=== PATIENT | female | born 1935 | race Caucasian/White ===

== ENCOUNTER 2018-09-04 10:52 | Emergency (ER) | payer MEDICARE, OTHER ==
[2018-09-04 11:09] VITALS: BP 155/100
--- NOTE | 2018-09-04 11:15 | EDM.PDOC ---
ED HPI GENERAL MEDICAL PROBLEM - General Chief Complaint: Syncope Stated Complaint: PASSING OUT,MORE THAN ONCE Time Seen by Provider: 09/04/18 11:15 Source of Information: Reports: Patient, Family History Limitations: Reports: No Limitations - History of Present Illness INITIAL COMMENTS - FREE TEXT/NARRATIVE: 83-year-old female presents to the ED feeling very offkilter trying to walk this morning. He was up at 3:00 this morning and couldn't walk normally without feeling off balance. However since getting up around 0700 hrs. she cannot walk alone. She required 2 person assist to coming to the ED she's had vertigo in the past associated with ear infections. Of note she had a tympanostomy tube placed in her left ear within the last 10 days due to chronic serous otitis media. At present she is getting a lot of postnasal drip and discharge which is foul tasting and causing her to cough . She is better she is sitting up and hold still. Denies any headache. She did not take her medicines this morning because her stomach was upset. Denies any fever or chills. Patient has chronic atrial fibrillation and rate appears to be controlled between 75 and 100/m on ECG. She denies any chest pain. Not aware of any palpitations this morning. Onset: Today, Sudden Onset Date: 09/04/18 Onset Time: 07:00 Duration: Hour(s): Location: Reports: Generalized (Generalized sense of being off balance. Difficulty walking due to ataxia. States she was walking like a drunk.) Quality: Reports: Other Severity: Moderate (Ataxic gait with vertigo symptoms.) Improves with: Reports: Rest (Sitting up and holding still makes symptoms better.) Worsens with: Reports: Movement Context: Denies: Activity (Particularly lying down or trying to walk.), Exercise , Lifting, Sick Contact, Trauma, Other Associated Symptoms: Reports: Cough, Loss of Appetite, Malaise, Nausea/Vomiting , Other (Nausea without vomiting. Ataxic gait. She cannot walk alone.). Denies : No Other Symptoms, Confusion, Chest Pain (Very productive sounding cough. She blames postnasal drip since having the tympanostomy tube placed as a cause of this. Feels like her sinuses are draining.), cough w sputum, Diaphoresis, Fever/ Chills, Headaches, Rash, Seizure, Shortness of Breath, Syncope Treatments [employer]: Reports: Other (see below) (None.) - Related Data Allergies Allergy/AdvReac Type Severity Reaction Status Date / Time No Known Allergies Allergy Verified 09/04/18 11:16 Home Meds: Home Meds Digoxin 125 mcg PO ASDIRECTED 02/05/14 [History] Diltiazem HCl [Diltiazem ER] 240 mg PO DAILY 02/05/14 [History] Multivit-Min/FA/Lutein/Zeaxant [Macular Vitamin Tablet] 1 tab PO DAILY 02/05/14 [History] Warfarin [Coumadin] 5 mg PO ASDIRECTED 02/05/14 [History] Warfarin [Coumadin] 7.5 mg PO ASDIRECTED 02/05/14 [History] Omeprazole [Prilosec] 40 mg PO DAILY 05/13/14 [History] B2/Vit A,C & E/Lut/Zeaxanth/Mn [Icaps] 1 tab PO DAILY 09/04/18 [History] Doxycycline [Vibramycin] 100 mg PO BID #20 cap 09/04/18 [Rx] Furosemide [Lasix] 40 mg PO DAILY #30 tablet 09/04/18 [Rx] Losartan [Cozaar] 100 mg PO DAILY 09/04/18 [History] Magnesium Chloride [Slow-Mag] 71.5 mg PO BID #60 tablet. 09/04/18 [Rx] Meclizine [Antivert] 12.5 mg PO Q8H #15 tab 09/04/18 [Rx] Nitroglycerin 0.4 mg SL ASDIRECTED PRN 09/04/18 [History] Spironolactone [Aldactone] 25 mg PO DAILY #30 tablet 09/04/18 [Rx] Past Medical History HEENT History: Reports: Hard of Hearing (Wears a hearing aid in both ears.), Macular Degeneration (Right eye.), Otitis Media, Sinusitis (Chronic sinusitis. Chronic problems with serous otitis media. She's had to place in her left ear twice with a recent one done within the last 10 days.) Cardiovascular History: Reports: Afib (Chronic atrial fibrillation and is on digoxin for rate control and Coumadin.) Respiratory History: Reports: Bronchitis, Recurrent, COPD Genitourinary History: Reports: Urinary Incontinence (Urinary frequency. Mostly urge incontinence.), Other (See Below) Musculoskeletal History: Reports: Osteoarthritis (Dictating knees hands particularly left thumb at this time. So in her hips as well.) Social & Family History - Living Situation & Occupation Living situation: Reports: , Alone Occupation: Retired ED ROS GENERAL - Review of Systems Review Of Systems: See Below Constitutional: Reports: Malaise, Fatigue, Decreased Appetite (Hasn't felt like eating 2 days.). Denies: Fever, Chills, Weight Loss HEENT: Reports: Glasses, Other (Hearing aids in both ears. Recent tympanostomy tube placed left ear.) Respiratory: Denies: Shortness of Breath, Wheezing, Pleuritic Chest Pain Cardiovascular: Reports: Blood Pressure Problem, Dyspnea on Exertion, Other ( Vertigo today.). Denies: Chest Pain, Claudication, Orthopnea (Chronic hypertension) Endocrine: Reports: Fatigue GI/Abdominal: Reports: Decreased Appetite (Last couple of days. She blames postnasal drip with all tasting discharge as part of the issue.), Nausea (Nausea /with the vertigo without vomiting today.) : Reports: Frequency, Incontinence Musculoskeletal: Reports: Joint Pain (Mostly urge but also a component of stress incontinence. Her left thumb at this time at the first MCP joint. Has arthritis in her hands low back knees and hips.) Skin: Reports: Bruising (Bruises easily as she is on Coumadin.) Neurological: Reports: No Symptoms, Difficulty Walking (Ataxic gait today.). Denies: Confusion Psychiatric: Reports: No Symptoms Hematologic/Lymphatic: Reports: No Symptoms Immunologic: Reports: No Symptoms - Physical Exam Exam: See Below Exam Limited By: No Limitations General Appearance: Alert, WD/WN, No Apparent Distress Eye Exam: Right Eye: Nystagmus (Sustained lateral nystagmus to the right. Unsustained on the left.), Bilateral Eye: Normal Inspection Ears: Other (Right tympanic membrane is normal. Left has a recently placed tympanostomy tube which is green in color. There is surrounding hemorrhage at the site of insertion in the eardrum. No drainage or occlusion of the TM is appreciated.) Throat/Mouth: Other Head Exam: Atraumatic (Orthotics is mildly inflamed from coughing.), Normocephalic Neck: Limited Range of Motion. No: Carotid Bruit, Lymphadenopathy (L), Lymphadenopathy (R) Respiratory/Chest: No Respiratory Distress, Lungs Clear, Normal Breath Sounds ( Breasts sounds are decreased in the lower 20% of lung russell. No adventitial sounds noted.), Decreased Breath Sounds. No: Rales, Rhonchi, Wheezing Cardiovascular: No Edema, No Gallop, No JVD, No Murmur, No Rub, Irregularly Irregular (Patient is in atrial fibrillation chronically. Occasional PVCs.). No : Normal Peripheral Pulses GI/Abdominal: Normal Bowel Sounds, Soft, Non-Tender, No Organomegaly, No Abnormal Bruit, No Mass, Pelvis Stable, Other (Patient is a previous cholecystectomy appendectomy total bili hysterectomy and BSO.) Neuro Exam (Abbreviated): Alert, Oriented, CN II-XII Intact, Normal Cognition, Other (Ataxic gait. Normal jcsy-we-kcsd assessment normal finger to nose assessment. No focal neurological deficit appreciated on exam.). No: Normal Gait DTR: 0: Achilles (R), Achilles (L), 1+: Bicep (R), Bicep (L), Patella (R), Patella (L) Back Exam: Other (Mild kyphosis thoracic spine.) Extremities: Normal Inspection, Normal Range of Motion, Non-Tender, No Pedal Edema Psychiatric: Normal Affect, Normal Mood Skin Exam: Warm, Dry, Intact, Normal Color, No Rash EKG INTERPRETATION EKG Date: 09/04/18 Time: 10:57 Rhythm: Other (Occasional PVCs.) Rate (Beats/Min): 87 [place]: Normal P-Wave: Absent QRS: Other (Q waves V1 and near Q waves V2.) ST-T: Depressed (Consider old anteroseptal myocardial infarction. ST segment depression scooping a repo repolarization abnormality be 3 to V6 also in lead 1. T wave flattening in aVL. There is repolarization abnormality appreciated in leads II, III, and F aVF as well. Cannot rule out global ischemia.) QT: Normal EKG Interpretation Comments: Abnormal ECG Course - Vital Signs Last Recorded V/S: Last Vital Signs Temp 36.5 C 09/04/18 11:02 Pulse 86 09/04/18 11:02 Resp 13 09/04/18 11:02 BP 155/100 H 09/04/18 11:02 Pulse Ox 98 09/04/18 11:02 - Orders/Labs/Meds Orders: Active Orders 24 hr Category Date Time Status EKG Documentation Completion [RC] STAT Care 09/04/18 11:36 Active Chest 1V Frontal [CR] Stat Exams 09/04/18 11:36 Taken Dextrose 5%-0.9% NaCl [Dextrose 5%-Normal Saline] 1,000 Med 09/04/18 11:45 Active ml IV ASDIRECTED Medication Orders Dextrose/Sodium Chloride (Dextrose 5%-Normal Saline) 1,000 mls @ 150 mls/hr IV ASDIRECTED JERICHO Last Admin: 09/04/18 11:52 Dose: 150 mls/hr Labs: Laboratory Tests 09/04/18 09/04/18 09/04/18 Range/Units 11:05 11:05 11:05 WBC 11.45 H (3.98-10.04) K/mm3 RBC 5.02 (3.98-5.22) M/mm3 Hgb 16.6 H (11.2-15.7) gm/L Hct 50.1 H (34.1-44.9) % MCV 99.8 H (79.4-94.8) fl MCH 33.1 H (25.6-32.2) pg MCHC 33.1 (32.2-35.5) g/dl RDW Std Deviation 47.9 H (36.4-46.3) fL Plt Count 221 (182-369) K/mm3 MPV 10.6 (9.4-12.3) fl Neutrophils % (Manual) 58 (40-60) % Band Neutrophils % 0 (0-10) % Lymphocytes % (Manual) 27 (20-40) % Atypical Lymphs % 0 % Monocytes % (Manual) 13 H (2-10) % Eosinophils % (Manual) 2 (0.7-5.8) % Basophils % (Manual) 0 L (0.1-1.2) Platelet Estimate Adequate RBC Morph Comment Normal PT 14.1 H (9.5-12.1) SECONDS INR 1.30 Sodium 140 (136-145) mEq/L Potassium 3.4 L (3.5-5.1) mEq/L Chloride 101 (98-107) mEq/L Carbon Dioxide 28 (21-32) mEq/L Anion Gap 14.4 (5-15) BUN 26 H (7-18) mg/dL Creatinine 1.6 H (0.55-1.02) mg/dL Est Cr Clr Drug Dosing 21.44 mL/min Estimated GFR (MDRD) 31 (>60) mL/min BUN/Creatinine Ratio 16.3 (14-18) Glucose 155 H (83-115) mg/dL Calcium 10.0 (8.5-10.1) mg/dL Magnesium 1.6 L (1.8-2.4) mg/dl Total Bilirubin 1.5 H (0.2-1.0) mg/dL AST 21 (15-37) U/L ALT 26 (14-59) U/L Alkaline Phosphatase 66 (46-116) U/L CK-MB (CK-2) 0.9 (0-3.6) ng/ml Troponin I < 0.017 (0.00-0.056) ng/mL C-Reactive Protein 6.6 H* (<1.0) mg/dL NT-Pro-B Natriuret Pep (0-450) pg/mL Total Protein 7.7 (6.4-8.2) g/dl Albumin 3.5 (3.4-5.0) g/dl Globulin 4.2 gm/dL Albumin/Globulin Ratio 0.8 L (1-2) Digoxin 0.4 L (0.9-2.0) ng/mL 09/04/18 Range/Units 11:05 WBC (3.98-10.04) K/mm3 RBC (3.98-5.22) M/mm3 Hgb (11.2-15.7) gm/L Hct (34.1-44.9) % MCV (79.4-94.8) fl MCH (25.6-32.2) pg MCHC (32.2-35.5) g/dl RDW Std Deviation (36.4-46.3) fL Plt Count (182-369) K/mm3 MPV (9.4-12.3) fl Neutrophils % (Manual) (40-60) % Band Neutrophils % (0-10) % Lymphocytes % (Manual) (20-40) % Atypical Lymphs % % Monocytes % (Manual) (2-10) % Eosinophils % (Manual) (0.7-5.8) % Basophils % (Manual) (0.1-1.2) Platelet Estimate RBC Morph Comment PT (9.5-12.1) SECONDS INR Sodium (136-145) mEq/L Potassium (3.5-5.1) mEq/L Chloride (98-107) mEq/L Carbon Dioxide (21-32) mEq/L Anion Gap (5-15) BUN (7-18) mg/dL Creatinine (0.55-1.02) mg/dL Est Cr Clr Drug Dosing mL/min Estimated GFR (MDRD) (>60) mL/min BUN/Creatinine Ratio (14-18) Glucose (83-115) mg/dL Calcium (8.5-10.1) mg/dL Magnesium (1.8-2.4) mg/dl Total Bilirubin (0.2-1.0) mg/dL AST (15-37) U/L ALT (14-59) U/L Alkaline Phosphatase (46-116) U/L CK-MB (CK-2) (0-3.6) ng/ml Troponin I (0.00-0.056) ng/mL C-Reactive Protein (<1.0) mg/dL NT-Pro-B Natriuret Pep 2195 H (0-450) pg/mL Total Protein (6.4-8.2) g/dl Albumin (3.4-5.0) g/dl Globulin gm/dL Albumin/Globulin Ratio (1-2) Digoxin (0.9-2.0) ng/mL Meds: Medications Generic Name Dose Route Start Last Admin Trade Name Freq PRN Reason Stop Dose Admin Dextrose/Sodium Chloride 1,000 mls @ 150 mls/hr 09/04/18 11:45 09/04/18 11:52 Dextrose 5%-Normal Saline IV 150 mls/hr ASDIRECTED JERICHO Administration Discontinued Medications Generic Name Dose Route Start Last Admin Trade Name Freq PRN Reason Stop Dose Admin Meclizine HCl 12.5 mg 09/04/18 11:36 09/04/18 11:49 Antivert PO 09/04/18 11:37 12.5 mg ONETIME ONE Administration Metoclopramide HCl 7.5 mg 09/04/18 11:35 09/04/18 11:49 Reglan IVPUSH 09/04/18 11:36 7.5 mg ONETIME ONE Administration - Radiology Interpretation Free Text/Narrative:: 83-year-old female presents to the ED for evaluation of sudden development of ataxic gait. No associated headache. Mild nausea with no vomiting. She has had a tympanostomy tube placed her left ear within the last 10 days. This because of chronic KRISHNA. Since then she's had a postnasal drip that is very foul tasting suspect sinus drainage from left maxillary sinus. Neuro exam is normal with no focal neurological deficit and no ataxia on finger to nose or heel to victoria. However she has marked difficulties trying to walk and is markedly ataxic. Due to the fact that she is on Coumadin CT head will be performed to rule out a cerebellar infarct/hemorrhage. Suspect vertigo as her symptoms seem to be better if she sitting up and not moving. She is on digoxin and Coumadin for chronic atrial fib. Levels of digoxin and course PT and I will be checked with routine labs. IV will be D5 normal saline 150 mils per hour since she's not gait or drank yet today. Given Reglan is 7.5 mg IV. Meclizine 12.[address] head will be done since she is on Coumadin and is very ataxic 1 a triangular up to walk.. This is concerning for cerebellar infarct. - Re-Assessments/Exams Free Text/Narrative Re-Assessment/Exam: 09/04/18 13:05 Labs reveal a mildly elevated white count of 11.45. The differential reveals 58% neutrophils and no bands. Hemoglobin is 16.6 with hematocrit of 50.1 suggesting a component of hemoconcentration and volume depletion. MCV is elevated at 99.8. Platelet count is normal at 221,000. PT is 14.1 with an INR that is subtherapeutic at 1.30. Sodium was 140 with potassium of 3.4. Chloride 101 with a bicarbonate of 28. And a gap is 14.4. B1 is 26 with a creatinine of 1.6. Estimated GFR is 31 i.e. stage 3 chronic kidney disease. Glucose is 155. Calcium is 10.0. Magnesium slightly low at 1.6. Bilirubin is mildly elevated 1.5 however AST is 21 and ALT is 26 and alk phosphatase is 66. 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 CK-MB fraction is 0.9. Troponin I is less than 0.017. C-reactive protein is elevated at 6.6. BNP is elevated at 2195. Digoxin is 0.4. Chest x-ray done portably revealed mildly hyperinflated lung russell. Moderate cardiomegaly. Visualized portion of the lungs appear clear. There is prominence of the right pulmonary artery. CT of the head revealed extra-axial abnormality within the left anterior frontal region. This contains calcifications and measures approximate 1.6 cm in size having the appearance of a partially calcified meningioma. This is felt to be present on prior exam and shows slight increase else occasions but is otherwise is unchanged in size. Ventricles along with the basal cisterns and sulci over the convexities are moderately prominent. Mild diminished density is noted within the periventricular white matter compatible with small vessel ischemic demyelination change. 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 No other abnormal parenchymal densities are seen. No evidence of intracranial hemorrhage no midline shift or mass effect is seen. Bone windows reviewed show no acute calvarial abnormality. Mucosal thickening is seen within the ethmoid and maxillary sinuses which has a chronic appearance. 09/04/18 13:21 On reexamination it and getting her up to walk in the hallway she did much better. She still listing slightly to the right side and therefore his vertigo is not completely gone. However it is much better and she is now hungry. I'm not going to change her Coumadin dosage. She hasn't taken it for 2 days and that's the reason is subtherapeutic. Similarly her digoxin has not been taken for 2 days either. I will be adding Slo-mag 1 tablet twice daily to her treatment plan to improve her hypomagnesemia. I'm going to place her on Doxycycline 100 mg twice daily for 10 days to further help clear up chronic sinusitis as the postnasal drip is interfering with her ability to eat. She does have an elevated white count and a mildly elevated CRP at 6.6 as well. I suspect her severe chronic cough is primarily secondary to congestive heart failure. BNP is 2195 and she is not on any diuretic in her current med list. I will therefore be placing her on Lasix 40 mg once daily every morning. Her serum potassium is low at 3.4 and I'm going to therefore going to add Aldactone 25 mg once daily to her treatment plan as well. She will need her potassium rechecked in 7 days time. She'll be placed on Antivert 12.5 mg every 8 hours for the next 5 days. Departure - Departure Time of Disposition: 13:25 Disposition: Home, Self-Care 01 Condition: Fair Clinical Impression: Chronic sinusitis of both maxillary sinuses, Hypomagnesemia, Benign paroxysmal positional vertigo of left ear Congestive heart failure Qualifiers: Heart failure type: unspecified Heart failure chronicity: acute on chronic Qualified Code(s): I50.9 - Heart failure, unspecified - Discharge Information *PRESCRIPTION DRUG MONITORING PROGRAM REVIEWED*: Not Applicable *COPY OF PRESCRIPTION DRUG MONITORING REPORT IN PATIENT MIKE: Not Applicable Prescriptions: Doxycycline [Vibramycin] 100 mg PO BID #20 cap Furosemide [Lasix] 40 mg PO DAILY #30 tablet Magnesium Chloride [Slow-Mag] 71.5 mg PO BID #60 tablet.dr Brandt [Antivert] 12.5 mg PO Q8H #15 tab Spironolactone [Aldactone] 25 mg PO DAILY #30 tablet Instructions: Sinusitis, Adult, Benign Positional Vertigo, Heart Failure Referrals: Margi Wei MD [Primary Care Provider] - Forms: ED Department Discharge Additional Instructions: Evaluation in the emergency room today in regards to development of difficulty walking since getting up from bed this morning. Her fine at 3:00 this morning when he got up to use the bathroom. Examination reveals that you're suffering from benign positional vertigo. You are fine if you are not moving. However you are off kilter in your gait and feeling dizzy lightheaded when you are moving. This is called benign paroxysmal vertigo. It is likely related to recent tympanostomy tube placement in your left ear. CT of the brain did not show any signs of a stroke or infarct. Lab tests revealed problems with increased fluid retention in your lungs which I believe is causing your paroxysmal cough as well as postnasal drip from the sinuses. This is to be treated with a water pill called Lasix 40 mg once daily every morning with Aldactone 25 mg tablet every morning. You will need antibiotic doxycycline 100 mg twice daily for the next 10 days to help clear up sinus infection. Vertigo is to be treated with Antivert 12.5 mg tablet which she received in the emergency room. Next tablet would be due at 6:00 tonight and then again at 2 in the morning. It's usually taken every 8 hours for 5 days. The other thing he was identified to be low in your blood was your Coumadin time and that's because you had not taken your Coumadin for the last 2 days. Therefore you need to resume your Coumadin and your digoxin medications as per usual. For 3 weeks on that your serum magnesium level is low which is important for heart function. Therefore you need a magnesium supplement like a vitamin called Slow-Mag one tablet twice daily. Suggest follow-up with Dr. Sears in 7 days time as you will need repeat blood test to check on your serum potassium level and kidney function. Labs did also reveal that you're little short on fluids and I have not been taking adequate fluids for the last couple of days as well. Try and increase fluid intake over the next couple of days now with just water but also with juices and /or Gatorade /Powerade. - My Orders Last 24 Hours: My Active Orders 09/04/18 11:36 EKG Documentation Completion [RC] STAT Chest 1V Frontal [CR] Stat 09/04/18 11:45 Dextrose 5%-0.9% NaCl [Dextrose 5%-Normal Saline] 1,000 ml IV ASDIRECTED - Assessment/Plan Last 24 Hours: My Active Orders 09/04/18 11:36 EKG Documentation Completion [RC] STAT Chest 1V Frontal [CR] Stat 09/04/18 11:45 Dextrose 5%-0.9% NaCl [Dextrose 5%-Normal Saline] 1,000 ml IV ASDIRECTED
[2018-09-04] MEDS ORDERED: Metoclopramide 10 MG/2 ML SDV IVPUSH ONE (11:35)
[2018-09-04] MEDS ORDERED: Meclizine 12.5 MG Tab PO ONE (11:36)
[2018-09-04] MEDS ORDERED: Dextrose 5%-0.9% NaCl 1,000 ML IV SCH (11:45)
--- NOTE | 2018-09-04 12:23 | CT ---
Head CT Technique: Multiple axial sections through the brain were obtained. Intravenous contrast was not utilized. Comparison: Previous head CT study of 07/21/09. Findings: Extra-axial abnormality is seen within the left anterior frontal region. This contains calcifications and measures approximately 1.6 cm in size having the appearance of partially calcified meningioma. This is felt to be present on prior exam and shows slight increase calcifications but is otherwise felt to be stable. Ventricles along with basal cisterns and sulci over the convexities are moderately prominent. Mild diminished density is noted within the periventricular white matter compatible with small vessel ischemic demyelination change. 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 No other abnormal parenchymal densities are seen. No evidence of intracranial hemorrhage. No midline shift or mass effect is seen. Bone window settings were reviewed which show no acute calvarial abnormality. Mucosal thickening is seen within the ethmoid and maxillary sinuses which is likely chronic and pre-existing. Impression: 1. Incidental meningioma within the anterior left frontal region. 2. Senescent change as noted above which includes the cerebellum. 3. No acute intracranial abnormality is appreciated. 4. Sinus disease most likely chronic. Diagnostic code #3
--- NOTE | 2018-09-04 13:06 | CR ---
Chest: Portable view of the chest was obtained. Comparison: Prior chest x-ray of 02/05/14. Heart size and mediastinum are within normal limits for portable technique. Lungs are clear. Bony structures are grossly intact. Impression: 1. Nothing acute is seen on portable chest x-ray. Diagnostic code #1
== END 2018-09-04 13:55 | disposition home or self-care (01) ==
LOC: JD.ED 10:52
DX: H81.12 Benign paroxysmal vertigo, left ear (principal); I50.9 Heart failure, unspecified; J32.0 Chronic maxillary sinusitis; E83.42 Hypomagnesemia; I48.91 Unspecified atrial fibrillation; J44.9 Chronic obstructive pulmonary disease, unspecified; Z79.899 Other long term (current) drug therapy
CPT/HCPCS: 36415; 70450; 71045; 80053; 80162; 82553; 83735; 83880; 84484; 85007; 85027; 85610; 86140; 93005; 96361; 96374; 99284; A9270; J2765; J7042; 93010; 99285

== ENCOUNTER 2019-01-13 10:23 | Observation (INO) | payer MEDICARE, OTHER ==
[2019-01-13] MEDS ORDERED: Sodium Chloride 0.9% 10 ML Syringe FLUSH PRN (10:28)
--- NOTE | 2019-01-13 11:00 | CT ---
CT cervical spine Technique: Multiple axial sections were obtained from above the C1 inferiorly to the mid T3 level. Reconstructed sagittal and coronal images were reviewed. Findings: Mild spondylolisthesis is noted at C5-C6 and C6-C7 as well as C7-T1 compatible with degenerative apophyseal change. Degenerative apophyseal change is also seen throughout other cervical and upper thoracic levels. Mild posterior disc space narrowing is noted at C3-C4 through C6-C7. Diffuse disc space narrowing is noted at C7-T1, T1-T2 and T2-T3. Vertebral bodies and posterior arches are intact. No fracture is seen. Minimal areas of neural foraminal stenosis are seen. No central canal stenosis is noted. Impression: 1. Degenerative change as noted above. Nothing acute is appreciated on CT study of the cervical spine. Diagnostic code #2
--- NOTE | 2019-01-13 11:35 | CT ---
Head CT Technique: Multiple axial sections through the brain were obtained. Intravenous contrast was not utilized. Comparison: Prior head CT study of 09/04/18. Findings: Calcified extra-axial lesion is seen within the anterior left frontal region which is stable from prior head CT study most likely representing meningioma measuring around 1.5 cm. Ventricles along with basal cisterns and sulci over the convexities are moderately prominent. Mild areas of diminished density are noted within the periventricular white matter compatible with small vessel ischemic demyelination change. No evidence of intracranial hemorrhage. No midline shift or mass effect is seen. Bone window settings were reviewed which show the visualized mastoid sinuses and paranasal sinuses to show nothing acute. No acute calvarial abnormality is seen. Impression: 1. Findings as noted above which are stable from prior head CT study. 2. Nothing acute is appreciated on noncontrast head CT study. Diagnostic code #2
--- NOTE | 2019-01-13 12:22 | CR ---
Left knee: Left knee: Four views of the left knee were obtained. Comparison: No previous knee exam. Very slight medial joint space narrowing is seen. Lateral joint space is preserved. No joint effusion is seen. No fracture or other bony abnormality is seen. Small spur is noted at the attachment of the quadriceps tendon to the patella. Impression: 1. Minimal degenerative change. Nothing acute is appreciated on left knee exam. Diagnostic code #2
--- NOTE | 2019-01-13 12:22 | CR ---
Left shoulder: Three views of the left shoulder were obtained. Comparison: No prior left shoulder exam. Slight calcification is seen below the acromion process most likely representing minimal calcific tendinitis. Glenohumeral joint appears within normal limits. No acute fracture or other bony abnormality is seen within the shoulder. Scoliosis is noted within the spine. Impression: 1. Minimal calcific tendinitis. Incidental cervical scoliosis. 2. Left shoulder study is otherwise unremarkable. Diagnostic code #2
--- NOTE | 2019-01-13 12:22 | CR ---
Right thumb: Four views of the right thumb were obtained. Comparison: No previous thumb study. Slight degenerative change is noted within the IP joint and at the CMC joint of the thumb. Osteopenia is noted. No acute fracture or other bony abnormality is seen. Impression: 1. Slight degenerative change and osteopenia. 2. Nothing acute is definitely appreciated on right thumb exam. Diagnostic code #2
--- NOTE | 2019-01-13 12:22 | CR ---
Chest: AP view of the chest was obtained. Comparison: Prior chest x-ray of 09/04/18. Heart size and mediastinum are within normal limits for AP technique. Lungs are clear with no acute parenchymal change. Bony structures are grossly intact. Impression: 1. Nothing acute is seen on AP chest x-ray. Diagnostic code #1
[2019-01-13] MEDS ORDERED: HYDROmorphone 0.5 MG/0.5 ML Syringe IVPUSH ONE (12:43)
--- NOTE | 2019-01-13 14:48 | EDM.PDOC ---
ED HPI GENERAL MEDICAL PROBLEM - General Chief Complaint: Trauma Stated Complaint: [facility] Time Seen by Provider: 01/13/19 10:28 Source of Information: Reports: Patient, EMS, Family History Limitations: Reports: No Limitations - History of Present Illness INITIAL COMMENTS - FREE TEXT/NARRATIVE: The patient presents by [facility] for a fall. She was walking into her garage and she tripped and fell. She is unsure if she had an LOC. She has a slight headache, neck pain and her left knee and shoulder hurt. She is on coumadin. She has no chest pain or abdominal pain. She has no fever or chills. She has no hip or wrist pain. She crawled back into the house and was able to call someone for help. Onset: Sudden Duration: Hour(s): Location: Reports: Head, Neck, Upper Extremity, Left (shoulder), Lower Extremity , Left (knee) Quality: Reports: Sharp Severity: Moderate Improves with: Reports: None Worsens with: Reports: Movement Context: Reports: Trauma (Fell down 6 stairs) Associated Symptoms: Reports: Headaches. Denies: Chest Pain, Fever/Chills, Nausea/Vomiting, Shortness of Breath Right Shoulder Pain Score (Numeric/FACES): 7 - Related Data Allergies Allergy/AdvReac Type Severity Reaction Status Date / Time No Known Allergies Allergy Verified 01/13/19 11:08 Home Meds: Home Meds Digoxin 125 mcg PO DAILY 02/05/14 [History] Diltiazem HCl [Diltiazem ER] 240 mg PO DAILY 02/05/14 [History] Warfarin [Coumadin] 5 mg PO ASDIRECTED 02/05/14 [History] Warfarin [Coumadin] 7.5 mg PO ASDIRECTED 02/05/14 [History] Omeprazole [Prilosec] 40 mg PO DAILY 05/13/14 [History] B2/Vit A,C & E/Lut/Zeaxanth/Mn [Icaps] 1 tab PO DAILY 09/04/18 [History] Furosemide [Lasix] 40 mg PO DAILY #30 tablet 09/04/18 [Rx] Losartan [Cozaar] 100 mg PO DAILY 09/04/18 [History] Nitroglycerin 0.4 mg SL ASDIRECTED PRN 09/04/18 [History] Spironolactone [Aldactone] 25 mg PO DAILY #30 tablet 09/04/18 [Rx] Past Medical History HEENT History: Reports: Hard of Hearing, Macular Degeneration, Otitis Media, Sinusitis Other HEENT History: wears glasses Cardiovascular History: Reports: Afib Other Cardiovascular History: atrial fib Respiratory History: Reports: Bronchitis, Recurrent, COPD Genitourinary History: Reports: Urinary Incontinence, Other (See Below) 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 [employer] History: Reports: Musculoskeletal History: Reports: Osteoarthritis Hematologic History: Reports: Blood Transfusion(s) Oncologic (Cancer) History: Reports: Malignant Melanoma Dermatologic History: Reports: Melanoma - Infectious Disease History Infectious Disease History: Reports: Chicken Pox, Measles, Mumps - Past Surgical History HEENT Surgical History: Reports: Tonsillectomy GI Surgical History: Reports: Appendectomy, Cholecystectomy, Colonoscopy Female Surgical History: Reports: Hysterectomy Social & Family History - Family History Family Medical History: Noncontributory - Tobacco Use Smoking Status *Q: Former Smoker Used Tobacco, but Quit: Yes Month/Year Tobacco Last Used: 1969 - Caffeine Use Caffeine Use: Reports: Coffee - Recreational Drug Use Recreational Drug Use: No - Living Situation & Occupation Living situation: Reports: , Alone Occupation: Retired Review of Systems - Review of Systems Review Of Systems: See Below Constitutional: Reports: No Symptoms Eyes: Reports: No Symptoms Ears: Reports: No Symptoms Nose: Reports: No Symptoms Mouth/Throat: Reports: No Symptoms Respiratory: Reports: No Symptoms Cardiovascular: Reports: No Symptoms GI/Abdominal: Reports: No Symptoms Genitourinary: Reports: No Symptoms Musculoskeletal: Reports: Shoulder Pain (Left), Other (Knee pain) Neurological: Reports: Headache ED EXAM, GENERAL - Physical Exam Exam: See Below Exam Limited By: No Limitations General Appearance: Alert, No Apparent Distress Ears: Normal External Exam Nose: Normal Inspection Head: Other (Pain upon palpation to the left side of her head) Neck: Tender Midline (Mild tenderness to the mid cervical spine) Respiratory/Chest: No Respiratory Distress, Lungs Clear, Normal Breath Sounds Cardiovascular: Regular Rate, Rhythm, No Edema, No Murmur GI/Abdominal: Soft, Non-Tender, No Organomegaly, No Mass Back Exam: Normal Inspection Extremities: Other (Abrasion with pain upon palpation to the left shoulder. Abrasion, edema and pain upon palpatio to the left knee. Good sensation and pulses distally.) Course - Vital Signs Last Recorded V/S: Last Vital Signs Temp 97.2 F 01/13/19 10:27 Pulse 72 01/13/19 10:27 Resp 19 01/13/19 10:27 BP 185/85 H 01/13/19 10:27 Pulse Ox 97 01/13/19 10:27 - Orders/Labs/Meds Orders: Active Orders 24 hr Category Date Time Status Cardiac Monitoring [RC] . DIRECTED Care 01/13/19 10:28 Active EKG Documentation Completion [RC] ASDIRECTED Care 01/13/19 11:47 Active Orthostatic Vital Signs [RC] ASDIRECTED Care 01/13/19 17:10 Active Peripheral IV Care [RC] . DIRECTED Care 01/13/19 10:29 Active Knee wo Cont Lt [MR] Stat Exams 01/13/19 12:45 Taken TROPONIN I [CHEM] Stat Lab 01/13/19 16:37 Received VITAMIN B12 [CHEM] Stat Lab 01/13/19 17:13 Received Sodium Chloride 0.9% [Saline Flush] Med 01/13/19 10:28 Active 10 ml FLUSH ASDIRECTED PRN Peripheral IV Insertion Adult [OM.PC] Stat Oth 01/13/19 10:28 Ordered EKG 12 Lead [EK] Stat Ther 01/13/19 11:47 Ordered Medication Orders Sodium Chloride (Saline Flush) 10 ml FLUSH ASDIRECTED PRN PRN Reason: Keep Vein Open Last Admin: 01/13/19 12:27 Dose: 10 ml Labs: Laboratory Tests 01/13/19 01/13/19 01/13/19 Range/Units 10:33 10:33 10:33 WBC 9.49 (3.98-10.04) K/mm3 RBC 4.00 (3.98-5.22) M/mm3 Hgb 14.2 D (11.2-15.7) gm/dl Hct 40.5 (34.1-44.9) % MCV 101.3 H (79.4-94.8) fl MCH 35.5 H (25.6-32.2) pg MCHC 35.1 (32.2-35.5) g/dl RDW Std Deviation 48.4 H (36.4-46.3) fL Plt Count 228 (182-369) K/mm3 MPV 10.5 (9.4-12.3) fl Neut % (Auto) 62.8 (34.0-71.1) % Lymph % (Auto) 27.2 (19.3-51.7) % [place] % (Auto) 8.1 (4.7-12.5) % Eos % (Auto) 1.2 (0.7-5.8) Baso % (Auto) 0.7 (0.1-1.2) % Neut # (Auto) 5.96 (1.56-6.13) K/mm3 Lymph # (Auto) 2.58 (1.18-3.74) K/mm3 [place] # (Auto) 0.77 H (0.24-0.36) K/mm3 Eos # (Auto) 0.11 (0.04-0.36) K/mm3 Baso # (Auto) 0.07 (0.01-0.08) K/mm3 PT 21.0 H D (9.7-12.0) SECONDS INR 2.00 Sodium 135 L (136-145) mEq/L Potassium 4.8 (3.5-5.1) mEq/L Chloride 102 (98-107) mEq/L Carbon Dioxide 22 (21-32) mEq/L Anion Gap 15.8 H (5-15) BUN 53 H D (7-18) mg/dL Creatinine 2.6 H (0.55-1.02) mg/dL Est Cr Clr Drug Dosing 16.83 mL/min Estimated GFR (MDRD) 18 (>60) mL/min BUN/Creatinine Ratio 20.4 H (14-18) Glucose 348 H (83-115) mg/dL Hemoglobin A1c (4.50-6.20) % Calcium 9.9 (8.5-10.1) mg/dL Total Bilirubin 0.5 (0.2-1.0) mg/dL AST 16 (15-37) U/L ALT 20 (14-59) U/L Alkaline Phosphatase 64 (46-116) U/L Total Protein 7.6 (6.4-8.2) g/dl Albumin 3.8 (3.4-5.0) g/dl Globulin 3.8 gm/dL Albumin/Globulin Ratio 1.0 (1-2) 01/13/19 Range/Units 10:33 WBC (3.98-10.04) K/mm3 RBC (3.98-5.22) M/mm3 Hgb (11.2-15.7) gm/dl Hct (34.1-44.9) % MCV (79.4-94.8) fl MCH (25.6-32.2) pg MCHC (32.2-35.5) g/dl RDW Std Deviation (36.4-46.3) fL Plt Count (182-369) K/mm3 MPV (9.4-12.3) fl Neut % (Auto) (34.0-71.1) % Lymph % (Auto) (19.3-51.7) % [place] % (Auto) (4.7-12.5) % Eos % (Auto) (0.7-5.8) Baso % (Auto) (0.1-1.2) % Neut # (Auto) (1.56-6.13) K/mm3 Lymph # (Auto) (1.18-3.74) K/mm3 [place] # (Auto) (0.24-0.36) K/mm3 Eos # (Auto) (0.04-0.36) K/mm3 Baso # (Auto) (0.01-0.08) K/mm3 PT (9.7-12.0) SECONDS INR Sodium (136-145) mEq/L Potassium (3.5-5.1) mEq/L Chloride (98-107) mEq/L Carbon Dioxide (21-32) mEq/L Anion Gap (5-15) BUN (7-18) mg/dL Creatinine (0.55-1.02) mg/dL Est Cr Clr Drug Dosing mL/min Estimated GFR (MDRD) (>60) mL/min BUN/Creatinine Ratio (14-18) Glucose (83-115) mg/dL Hemoglobin A1c 8.00 H (4.50-6.20) % Calcium (8.5-10.1) mg/dL Total Bilirubin (0.2-1.0) mg/dL AST (15-37) U/L ALT (14-59) U/L Alkaline Phosphatase (46-116) U/L Total Protein (6.4-8.2) g/dl Albumin (3.4-5.0) g/dl Globulin gm/dL Albumin/Globulin Ratio (1-2) Meds: Medications Generic Name Dose Route Start Last Admin Trade Name Minh PRN Reason Stop Dose Admin Sodium Chloride 10 ml 01/13/19 10:28 01/13/19 12:27 Saline Flush FLUSH 10 ml ASDIRECTED PRN Administration Keep Vein Open Discontinued Medications Generic Name Dose Route Start Last Admin Trade Name Minh PRN Reason Stop Dose Admin Hydromorphone HCl 0.25 mg 01/13/19 12:43 01/13/19 13:17 Dilaudid IVPUSH 01/13/19 12:44 0.25 mg ONETIME ONE Administration - Re-Assessments/Exams Free Text/Narrative Re-Assessment/Exam: 01/13/19 14:47 I ordered an IV saline lock, labs, CXR, shoulder x-ray, knee x-ray, CT of her head and neck. 01/13/19 17:[address] of her neck and head shows nothing acute. X-rays of her shoulder and knee shows nothing acute. Her CXR looks good. Her CBC looks good. Her INR is 2. Her Na is low at 135. Her creatinine is elevated at 2.6. Her anion gap is elevated at 15.8. Her BUN was elevated at 53. Her glucose is elevated at 348. Her Hgb A1C is 8. She had severe pain when I tried to get her up to walk her in her left knee. I was able to get an MRI of her left knee. That shows an effusion but nothing acute. I called Dr Lester and she came to see the patient. I feel she may need to be admitted. Departure - Departure Time of Disposition: 17:20 Disposition: Refer to Observation Condition: Fair Clinical Impression: Renal insufficiency, Abrasion, left knee, initial encounter Fall Qualifiers: Encounter type: initial encounter Qualified Code(s): W19.XXXA - Unspecified fall, initial encounter Type II diabetes mellitus Qualifiers: Diabetes mellitus prison insulin use: without terminal gauger supervisor use Diabetes mellitus complication status: with other specified complication Qualified Code(s ): E11.69 - Type 2 diabetes mellitus with other specified complication Abrasion of left shoulder Qualifiers: Encounter type: initial encounter Qualified Code(s): S40.212A - Abrasion of left shoulder, initial encounter Sprain of left knee Qualifiers: Encounter type: initial encounter Involved ligament of knee: unspecified ligament Qualified Code(s): S83.92XA - Sprain of unspecified site of left knee, initial encounter - Discharge Information Referrals: Margi Wei MD [Primary Care Provider] - Forms: ED Department Discharge - My Orders Last 24 Hours: My Active Orders 01/13/19 10:28 Cardiac Monitoring [RC] . DIRECTED Sodium Chloride 0.9% [Saline Flush] 10 ml FLUSH ASDIRECTED PRN Peripheral IV Insertion Adult [OM.PC] Stat 01/13/19 10:29 Peripheral IV Care [RC] . DIRECTED 01/13/19 11:47 EKG Documentation Completion [RC] ASDIRECTED EKG 12 Lead [EK] Stat 01/13/19 12:45 Knee wo Cont Lt [MR] Stat 01/13/19 16:37 TROPONIN I [CHEM] Stat - Assessment/Plan Last 24 Hours: My Active Orders 01/13/19 10:28 Cardiac Monitoring [RC] . DIRECTED Sodium Chloride 0.9% [Saline Flush] 10 ml FLUSH ASDIRECTED PRN Peripheral IV Insertion Adult [OM.PC] Stat 01/13/19 10:29 Peripheral IV Care [RC] . DIRECTED 01/13/19 11:47 EKG Documentation Completion [RC] ASDIRECTED EKG 12 Lead [EK] Stat 01/13/19 12:45 Knee wo Cont Lt [MR] Stat 01/13/19 16:37 TROPONIN I [CHEM] Stat
[2019-01-13] MEDS ORDERED: Acetaminophen 325 MG Tab PO PRN (18:17)
[2019-01-13] MEDS ORDERED: Ondansetron 4 MG Tab.DIS PO PRN (18:17)
[2019-01-13] MEDS ORDERED: Ondansetron 4 MG/2 ML SDV IV PRN (18:17)
[2019-01-13] MEDS ORDERED: Lactated Ringers 500 ML IV ONE (18:17)
[2019-01-13] MEDS ORDERED: Lactated Ringers 1,000 ML IV SCH (18:30)
--- NOTE | 2019-01-13 18:32 | PCM.HP.2 ---
H&P History of Present Illness - General Date of Service: 01/13/19 Admit Problem/Dx: Admission Diagnosis/Problem Admission Diagnosis/Problem Orthostatic hypotension - History of Present Illness Initial Comments - Free Text/Narative: This is an 83 year old female with past medical history of atrial fibrillation, hypertension, heart failure who comes to the ED brought in by daughter after a fall down the stairs. As per patient she does not know how she fell but remembers the whole fall. She is unsure if there was any LOC No loss of continence (bowel and urine), chest pain, palpitations, dizziness, headache, involuntary movements, shortness of breath. Right Shoulder Pain Score (Numeric/FACES): 7 - Related Data Allergies/Adverse Reactions: Allergies Allergy/AdvReac Type Severity Reaction Status Date / Time No Known Allergies Allergy Verified 01/13/19 11:08 Home Medications: Home Meds Digoxin 125 mcg PO DAILY 02/05/14 [History] Warfarin [Coumadin] 5 mg PO ASDIRECTED 02/05/14 [History] Warfarin [Coumadin] 7.5 mg PO ASDIRECTED 02/05/14 [History] Omeprazole [Prilosec] 40 mg PO DAILY 05/13/14 [History] B2/Vit A,C & E/Lut/Zeaxanth/Mn [Icaps] 1 tab PO DAILY 09/04/18 [History] Past Medical History HEENT History: Reports: Hard of Hearing, Macular Degeneration, Otitis Media, Sinusitis Other HEENT History: wears glasses Cardiovascular History: Reports: Afib Other Cardiovascular History: atrial fib Respiratory History: Reports: Bronchitis, Recurrent, COPD Genitourinary History: Reports: Urinary Incontinence, Other (See Below) [employer] History: Reports: Musculoskeletal History: Reports: Osteoarthritis Hematologic History: Reports: Blood Transfusion(s) Oncologic (Cancer) History: Reports: Malignant Melanoma Dermatologic History: Reports: Melanoma - Infectious Disease History Infectious Disease History: Reports: Chicken Pox, Measles, Mumps - Past Surgical History HEENT Surgical History: Reports: Tonsillectomy GI Surgical History: Reports: Appendectomy, Cholecystectomy, Colonoscopy Female Surgical History: Reports: Hysterectomy Social & Family History - Family History Family Medical History: Noncontributory - Tobacco Use Smoking Status *Q: Former Smoker Used Tobacco, but Quit: Yes Month/Year Tobacco Last Used: 1969 - Caffeine Use Caffeine Use: Reports: Coffee - Recreational Drug Use Recreational Drug Use: No - Living Situation & Occupation Living situation: Reports: , Alone Occupation: Retired H&P Review of Systems - Review of Systems: Review Of Systems: See Below General: Denies: Fever, Chills, Malaise, Weakness, Fatigue, Night Sweats, Diaphoresis, Decreased Appetite, Weight Loss HEENT: Denies: Contact Lenses, Dysphasia, Headaches, Hearing Changes, Rhinitis, Post Nasal Drip, Sinus Congestion, Sore Throat, Vertigo, Visual Changes Pulmonary: Denies: Shortness of Breath, Wheezing, Pleuritic Chest Pain, Cough, Sputum, Hemoptysis Cardiovascular: Denies: Chest Pain, Palpitations, Dyspnea on Exertion, Orthopnea , PND, Edema, Lightheadedness, Syncope Gastrointestinal: Denies: Abdominal Pain, Anorexia, Black Stool, Bloody Stool, Constipation, Diarrhea, Decreased Appetite, Difficulty Swallowing, Distension, Flatus, Hematemesis, Hematochezia Genitourinary: Denies: Dysuria, Frequency, Burning, Pain, Urgency, Incontinence , Hematuria, Retention Musculoskeletal: Reports: Hand Pain, Leg Pain, Joint Pain Skin: Denies: Cyanosis, Jaundice, Mottled, Pallor, Diaphoresis, Dryness, Bruising, Pruritis, Rash, Erythema, Wound Psychiatric: Denies: No Symptoms, Confusion, Depression, Mood Lability, Anxiety Neurological: Denies: No Symptoms, Confusion, Dizziness, Headache, Numbness, Paresthesia, Seizure, Syncope Exam - Exam Exam: See Below - Vital Signs Vital Signs: Last Vital Signs Temp 36.2 C 01/13/19 10:27 Pulse 72 01/13/19 10:27 Resp 19 01/13/19 10:27 BP 185/85 H 01/13/19 10:27 Pulse Ox 97 01/13/19 10:27 Orthostatic Blood Pressure [ 135/76 Sitting] Orthostatic Blood Pressure [ 162/89 Standing] Orthostatic Blood Pressure [ 172/72 Supine] Weight: 67.132 kg - Exam General: Alert, Oriented, Cooperative. No: Mild Distress HEENT: Conjunctiva Clear, EOMI, Hearing Intact, Nares Patent, Normal Nasal Septum, Pupils Equal, Pupils Reactive. No: Mucosa Moist & [place] Neck: Supple, Trachea Midline. No: Lymphadenopathy, Carotid Bruit Lungs: Clear to Auscultation, Normal Respiratory Effort. No: Crackles, Rales, Rhonchi, Wheezing Cardiovascular: Regular Rate, Regular Rhythm. No: Bradycardia, Tachycardia, Systolic Murmur, Diastolic Murmur, Rubs GI/Abdominal Exam: Normal Bowel Sounds, Soft, Non-Tender, No Organomegaly, No Distention, No Mass, Pelvis Stable. No: Guarding, Rebound Back Exam: Normal Inspection Extremities: Normal Inspection, No Pedal Edema. No: Non-Tender Skin: Warm, Dry, Intact Neurological: Cranial Nerves Intact, Normal Speech Psychiatric: Alert, Normal Affect, Normal Mood - Patient Data Lab Results Last 24 hrs: Laboratory Results - last 24 hr 01/13/19 01/13/19 01/13/19 Range/Units 10:33 10:33 10:33 WBC 9.49 (3.98-10.04) K/mm3 RBC 4.00 (3.98-5.22) M/mm3 Hgb 14.2 D (11.2-15.7) gm/dl Hct 40.5 (34.1-44.9) % MCV 101.3 H (79.4-94.8) fl MCH 35.5 H (25.6-32.2) pg MCHC 35.1 (32.2-35.5) g/dl RDW Std Deviation 48.4 H (36.4-46.3) fL Plt Count 228 (182-369) K/mm3 MPV 10.5 (9.4-12.3) fl Neut % (Auto) 62.8 (34.0-71.1) % Lymph % (Auto) 27.2 (19.3-51.7) % [place] % (Auto) 8.1 (4.7-12.5) % Eos % (Auto) 1.2 (0.7-5.8) Baso % (Auto) 0.7 (0.1-1.2) % Neut # (Auto) 5.96 (1.56-6.13) K/mm3 Lymph # (Auto) 2.58 (1.18-3.74) K/mm3 [place] # (Auto) 0.77 H (0.24-0.36) K/mm3 Eos # (Auto) 0.11 (0.04-0.36) K/mm3 Baso # (Auto) 0.07 (0.01-0.08) K/mm3 PT 21.0 H D (9.7-12.0) SECONDS INR 2.00 Sodium 135 L (136-145) mEq/L Potassium 4.8 (3.5-5.1) mEq/L Chloride 102 (98-107) mEq/L Carbon Dioxide 22 (21-32) mEq/L Anion Gap 15.8 H (5-15) BUN 53 H D (7-18) mg/dL Creatinine 2.6 H (0.55-1.02) mg/dL Est Cr Clr Drug Dosing 16.83 mL/min Estimated GFR (MDRD) 18 (>60) mL/min BUN/Creatinine Ratio 20.4 H (14-18) Glucose 348 H (83-115) mg/dL Hemoglobin A1c (4.50-6.20) % Calcium 9.9 (8.5-10.1) mg/dL Total Bilirubin 0.5 (0.2-1.0) mg/dL AST 16 (15-37) U/L ALT 20 (14-59) U/L Alkaline Phosphatase 64 (46-116) U/L Creatine Kinase (26-192) U/L Troponin I (0.00-0.056) ng/mL Total Protein 7.6 (6.4-8.2) g/dl Albumin 3.8 (3.4-5.0) g/dl Globulin 3.8 gm/dL Albumin/Globulin Ratio 1.0 (1-2) Vitamin B12 (193-986) pg/ml 01/13/19 01/13/19 01/13/19 Range/Units 10:33 16:37 16:46 WBC (3.98-10.04) K/mm3 RBC (3.98-5.22) M/mm3 Hgb (11.2-15.7) gm/dl Hct (34.1-44.9) % MCV (79.4-94.8) fl MCH (25.6-32.2) pg MCHC (32.2-35.5) g/dl RDW Std Deviation (36.4-46.3) fL Plt Count (182-369) K/mm3 MPV (9.4-12.3) fl Neut % (Auto) (34.0-71.1) % Lymph % (Auto) (19.3-51.7) % [place] % (Auto) (4.7-12.5) % Eos % (Auto) (0.7-5.8) Baso % (Auto) (0.1-1.2) % Neut # (Auto) (1.56-6.13) K/mm3 Lymph # (Auto) (1.18-3.74) K/mm3 [place] # (Auto) (0.24-0.36) K/mm3 Eos # (Auto) (0.04-0.36) K/mm3 Baso # (Auto) (0.01-0.08) K/mm3 PT (9.7-12.0) SECONDS INR Sodium (136-145) mEq/L Potassium (3.5-5.1) mEq/L Chloride (98-107) mEq/L Carbon Dioxide (21-32) mEq/L Anion Gap (5-15) BUN (7-18) mg/dL Creatinine (0.55-1.02) mg/dL Est Cr Clr Drug Dosing mL/min Estimated GFR (MDRD) (>60) mL/min BUN/Creatinine Ratio (14-18) Glucose (83-115) mg/dL Hemoglobin A1c 8.00 H (4.50-6.20) % Calcium (8.5-10.1) mg/dL Total Bilirubin (0.2-1.0) mg/dL AST (15-37) U/L ALT (14-59) U/L Alkaline Phosphatase (46-116) U/L Creatine Kinase 212 H (26-192) U/L Troponin I < 0.017 (0.00-0.056) ng/mL Total Protein (6.4-8.2) g/dl Albumin (3.4-5.0) g/dl Globulin gm/dL Albumin/Globulin Ratio (1-2) Vitamin B12 (193-986) pg/ml 01/13/19 Range/Units 17:13 WBC (3.98-10.04) K/mm3 RBC (3.98-5.22) M/mm3 Hgb (11.2-15.7) gm/dl Hct (34.1-44.9) % MCV (79.4-94.8) fl MCH (25.6-32.2) pg MCHC (32.2-35.5) g/dl RDW Std Deviation (36.4-46.3) fL Plt Count (182-369) K/mm3 MPV (9.4-12.3) fl Neut % (Auto) (34.0-71.1) % Lymph % (Auto) (19.3-51.7) % [place] % (Auto) (4.7-12.5) % Eos % (Auto) (0.7-5.8) Baso % (Auto) (0.1-1.2) % Neut # (Auto) (1.56-6.13) K/mm3 Lymph # (Auto) (1.18-3.74) K/mm3 [place] # (Auto) (0.24-0.36) K/mm3 Eos # (Auto) (0.04-0.36) K/mm3 Baso # (Auto) (0.01-0.08) K/mm3 PT (9.7-12.0) SECONDS INR Sodium (136-145) mEq/L Potassium (3.5-5.1) mEq/L Chloride (98-107) mEq/L Carbon Dioxide (21-32) mEq/L Anion Gap (5-15) BUN (7-18) mg/dL Creatinine (0.55-1.02) mg/dL Est Cr Clr Drug Dosing mL/min Estimated GFR (MDRD) (>60) mL/min BUN/Creatinine Ratio (14-18) Glucose (83-115) mg/dL Hemoglobin A1c (4.50-6.20) % Calcium (8.5-10.1) mg/dL Total Bilirubin (0.2-1.0) mg/dL AST (15-37) U/L ALT (14-59) U/L Alkaline Phosphatase (46-116) U/L Creatine Kinase (26-192) U/L Troponin I (0.00-0.056) ng/mL Total Protein (6.4-8.2) g/dl Albumin (3.4-5.0) g/dl Globulin gm/dL Albumin/Globulin Ratio (1-2) Vitamin B12 429 (193-986) pg/ml Result Diagrams: 01/14/19 05:40 01/14/19 05:40 EKG INTERPRETATION EKG Date: 01/13/19 Rhythm: A-Fib [place]: RAD-Right [place] Deviation P-Wave: Absent QRS: Normal ST-T: Normal QT: Normal *Q Meaningful Use (ADM) - VTE *Q VTE Anticoagulation Contraindications: Med/TX Not Indicated/Need - Problem List (1) Orthostatic hypotension SNOMED Code(s): 65686354 ICD Code: I95.1 - ORTHOSTATIC HYPOTENSION Status: Acute Current Visit: Yes (2) Fall SNOMED Code(s): 0045711, 989642771 ICD Code: W19.XXXA - UNSPECIFIED FALL, INITIAL ENCOUNTER Status: Acute Current Visit: Yes Qualifiers: Encounter type: initial encounter Qualified Code(s): W19.XXXA - Unspecified fall, initial encounter (3) Hypertension SNOMED Code(s): 69799622 ICD Code: I10 - ESSENTIAL (PRIMARY) HYPERTENSION Status: Acute Current Visit: Yes Qualifiers: Hypertension type: essential hypertension Qualified Code(s): I10 - Essential (primary) hypertension (4) Macrocytosis without anemia SNOMED Code(s): 119198876 ICD Code: D75.89 - OTHER SPECIFIED DISEASES OF BLOOD AND BLOOD-FORMING ORGANS Status: Acute Current Visit: Yes (5) Atrial fibrillation with controlled ventricular rate SNOMED Code(s): 57248904 ICD Code: I48.91 - UNSPECIFIED ATRIAL FIBRILLATION Status: Acute Current Visit: Yes (6) [id number] kidney injury SNOMED Code(s): 452936424 ICD Code: N17.9 - ACUTE KIDNEY FAILURE, UNSPECIFIED; N18.9 - CHRONIC KIDNEY DISEASE, UNSPECIFIED Status: Acute Current Visit: Yes Qualifiers: Acute renal failure type: unspecified Chronic kidney disease stage: stage 3 (moderate) Qualified Code(s): N17.9 - Acute kidney failure, unspecified; N18.3 - Chronic kidney disease, stage 3 (moderate) (7) Chronic heart failure not affecting current episode of care SNOMED Code(s): 91650383 ICD Code: I50.9 - HEART FAILURE, UNSPECIFIED Status: Acute Current Visit : Yes Problem List Initiated/Reviewed/Updated: Yes Orders Last 24hrs: Fall 2/2 orthostatic hypotension Fall from stairs Unwitnessed No fractures CT head is negative PLAN - Hold all home BP meds for now - LR bolus 500ml - LR at 75ml/hr x 2L - Compression stockings - PT/OT evaluation - Vitamin B12 level - Ambulate with assistance - Orthostatic vital signs in AM - Case management and social work consult for discharge planning Acute on chronic kidney injury, grade 3B 2/2 volume depletion No recent change in medications PLAN - BMP, MG and Pi in AM - LR 500ml bolus - LR at 75ml/hr x 2L - Hold all home BP meds for now Atrial fibrillation, rate controlled, CHADs VASC- 6 on warfarin Compliant with warfarin INR-2 PLAN - New PT/INR in AM - Continue home warfarin Hypertension Hypotensive on admission PLAN - Hold all home BP meds for now Macrocytosis without anemia Could be etiology of fall PLAN - Vitamin B12 and folate level ordered Chronic heart failure, unknown if systolic or diastolic Likely 2/2 a. fib PLAN - Echocardiogram ordered - I/Os - Daily weights - Hold home diuretics PROPHYLAXIS DVT- on home warfarin GI- not indicated CODE STATUS: FULL CODE DISPOSITION: Evaluation by PT/OT ordered, will replete volume for now, ordered compression stockings.
--- NOTE | 2019-01-13 20:16 | MR ---
MRI left knee Technique: Proton fatsuppressed axial; T1, T2 gradient echo and T2 fat-suppressed coronal; T1, proton fat-suppressed and T2 gradient echo sagittal Findings: Small joint effusion is seen. Patellofemoral cartilage is preserved for age. Cartilage within the medial and lateral joints also appears within normal limits for age. Lateral collateral and medial collateral ligaments are intact. Anterior and posterior cruciate ligaments are intact. No discrete meniscal tear is seen. Quadriceps tendon and patellar ligaments are intact. There is a small amount of subcutaneous fluid anterior within the knee. Quadriceps tendon and patellar ligament are intact. No bone marrow edema is identified. Impression: 1. Joint effusion. Subcutaneous fluid within the anterior knee. 2. No additional abnormality is appreciated on MRI study of the left knee. Diagnostic code #2
[2019-01-13] MEDS: Insulin Lispro 100 Units/ML 3 ML Vial SUBCUT SCH (22:52)
[2019-01-14] MEDS: Insulin Lispro 100 Units/ML 3 ML Vial SUBCUT SCH ×3 (06:56→17:24)
[2019-01-14 07:42] LABS: HEMOGLOBIN A1C 8.3 % (4.50-6.20)
[2019-01-14] MEDS ORDERED: Multivitamins with Minerals/Folic Acid/Lutein/Zeaxanth Tab PO SCH (09:00)
[2019-01-14] MEDS ORDERED: Magnesium Sulfate/Water 4 GM in Premix Bag 1 BAG IV ONE (10:30)
[2019-01-14] MEDS ORDERED: Digoxin 125 MCG Tab PO SCH (12:00)
[2019-01-14 16:55] VITALS: BP 158/80; PULSE 77
--- NOTE | 2019-01-14 17:09 | PCM.DCSUM1 ---
Discharge Summary - Hospital Course HPI Initial Comments: This is an 83 year old female with past medical history of atrial fibrillation, hypertension, heart failure who comes to the ED brought in by daughter after a fall down the stairs. As per patient she does not know how she fell but remembers the whole fall. She is unsure if there was any LOC No loss of continence (bowel and urine), chest pain, palpitations, dizziness, headache, involuntary movements, shortness of breath. Brief History: Once in the emergency department x-rays were performed. 1. Chest x-ray, reported negative. 2. Left knee with mild degenerative changes but no fractures. 3. Right thumb with slight degenerative changes and osteopenia within IP joint and at the C[facility] joint of the thumb but no fractures. 4. Head CT with calcified extra-axial lesion within the anterior left frontal region stable from prior head CT on 09/04/18, most likely meningioma measuring 1.5 cm. Ventricles along with basal cisterns and sulci over the convexities are mildly prominent. Mild areas of diminished density within the periventricular white matter compatible with small vessel ischemic demyelination change. No intracranial bleed, midline shift or mass effect. 5. Left shoulder x-ray was minimal calcific tendinitis and incidental finding of cervical scoliosis without fractures. Diagnosis: Stroke: No - Discharge Data Discharge Date: 01/14/19 Discharge Disposition: Home, Self-Care 01 Condition: Good - Referral to Home Health Primary Care Physician: Margi Wei MD - Discharge Diagnosis/Problem(s) (1) Orthostatic hypotension SNOMED Code(s): 30090643 ICD Code: I95.1 - ORTHOSTATIC HYPOTENSION Status: Acute Current Visit: Yes (2) Fall SNOMED Code(s): 5964563, 093156433 ICD Code: W19.XXXA - UNSPECIFIED FALL, INITIAL ENCOUNTER Status: Acute Current Visit: Yes Qualifiers: Encounter type: initial encounter Qualified Code(s): W19.XXXA - Unspecified fall, initial encounter (3) Hypertension SNOMED Code(s): 14344897 ICD Code: I10 - ESSENTIAL (PRIMARY) HYPERTENSION Status: Acute Current Visit: Yes Qualifiers: Hypertension type: essential hypertension Qualified Code(s): I10 - Essential (primary) hypertension (4) Macrocytosis without anemia SNOMED Code(s): 964091663 ICD Code: D75.89 - OTHER SPECIFIED DISEASES OF BLOOD AND BLOOD-FORMING ORGANS Status: Acute Current Visit: Yes (5) Atrial fibrillation with controlled ventricular rate SNOMED Code(s): 32228055 ICD Code: I48.91 - UNSPECIFIED ATRIAL FIBRILLATION Status: Acute Current Visit: Yes (6) Qtelf-or-bebbuvw kidney injury SNOMED Code(s): 669756297 ICD Code: N17.9 - ACUTE KIDNEY FAILURE, UNSPECIFIED; N18.9 - CHRONIC KIDNEY DISEASE, UNSPECIFIED Status: Acute Current Visit: Yes Qualifiers: Acute renal failure type: unspecified Chronic kidney disease stage: stage 3 (moderate) Qualified Code(s): N17.9 - Acute kidney failure, unspecified; N18.3 - Chronic kidney disease, stage 3 (moderate) (7) Chronic heart failure not affecting current episode of care SNOMED Code(s): 64076737 ICD Code: I50.9 - HEART FAILURE, UNSPECIFIED Status: Acute Current Visit : Yes - Patient Summary/Data Operative Procedure(s) Performed: None Hospital Course: She was found to be orthostatic and started on IV fluids, given a total of 1.1 L. Previously orthostatic vital signs prior to discharge reported negative. Echocardiogram was performed during admission, pending report. - Patient Instructions Diet: Diabetic Diet Activity: Apply Ice, As Tolerated - Discharge Plan Home Medications: Home Meds Digoxin 125 mcg PO DAILY 02/05/14 [History] Warfarin [Coumadin] 5 mg PO ASDIRECTED 02/05/14 [History] Warfarin [Coumadin] 7.5 mg PO ASDIRECTED 02/05/14 [History] Omeprazole [Prilosec] 40 mg PO DAILY 05/13/14 [History] B2/Vit A,C & E/Lut/Zeaxanth/Mn [Icaps] 1 tab PO DAILY 09/04/18 [History] Patient Handouts: Fall Prevention in the Home, Adult, [id number], Knee Sprain , Adult, [id number] Referrals: Margi Wei MD [Primary Care Provider] - (please call the clinic and set up an appointment to occur in the next 2-3 days. If you are unable to see your provider please set up an appointment with another provider to discuss your hospitalization. ) - Discharge Summary/Plan Comment DC Time >30 min.: No Discharge Summary/Plan Comment: Discharge recommendations the patient 1. Please make sure to follow-up with her primary care provider in 2-3 days 2. He'll need to be evaluated by her cartridge maker in the next 5-7 days 3. Wear your compression stockings every day unless otherwise indicated by her primary care provider 4. I have placed all your blood pressure medications on hold as well as her diuretics due to irritable blood pressure problem on admission. Please discuss with her primary care physician and cartridge maker to see when to be restarted on it. 5. A test to diagnose diabetes was performed during admission called a hemoglobin A1c and was reported at 8%, this means you are diabetic however this is controlled for your age. At this time I recommend only dietary modifications and exercise. Follow-up with your primary care physician for other recommendations. 6. Part of the reasons you had low blood pressure on admission was because you were volume depleted hGH dehydrated, please make sure to drink at least 6 glasses of water a day. 7. To avoid further episodes of falling please use walker as needed and use care when changing position, avoid changing position too quickly. Recommendations to primary care provider Patient came in after a fall from her own height down the stairs, orthostatics vital signs on admission were positive. She was admitted for IV fluid repletion and monitor cessation of her blood pressure. Metastatic vital signs were performed prior to discharge and were reportedly negative. 1. Also blood pressure medications have been placed on hold please discuss and adjust accordingly. She will need to be evaluated by cardiology during the next week. 2. Prescribe compression stockings as well please reinforce compliance 3. On admission a hemoglobin A1c was performed, reported at 8. ASIS is at goal for which I had a electronic components assembler discuss lifestyle modifications both diet and exercise with her. I did not start any medications and anticipate glucose control with this alone. 4. New echocardiogram was performed during her admission, the report is pending. Please request records for report. 5. Thank you for allowing me to participate in your patient's care. - General Info Date of Service: 01/14/19 Functional Status: Reports: Pain Controlled - Review of Systems General: Reports: No Symptoms. Denies: Fever, Weakness, Fatigue, Malaise, Chills, Night Sweats, Appetite HEENT: Reports: No Symptoms. Denies: Dysphasia, Ear Pain, Eye Pain, Glasses, Headaches, Post Nasal Drip, Sinus Congestion, Sore Throat, Rhinitis, Visual Changes Pulmonary: Denies: Shortness of Breath, Pleuritic Chest Pain, Cough, Sputum, Hemoptysis, Wheezing Cardiovascular: Denies: Chest Pain, Palpitations, Dyspnea on Exertion, Orthopnea , PND, Edema, Lightheadedness Gastrointestinal: Denies: Abdominal Pain, Constipation, Decreased Appetite, Diarrhea, Difficulty Swallowing, Flatus Genitourinary: Denies: Dysuria, Frequency, Burning, Pain, Urgency Musculoskeletal: Reports: Shoulder Pain, Hand Pain, Leg Pain Skin: Denies: Cyanosis, Jaundice, Mottled, Pallor, Diaphoresis Neurological: Denies: Confusion, Dizziness, Headache Psychiatric: Denies: Confusion, Depression, Anxiety - Patient Data Vitals - Most Recent: Last Vital Signs Temp 36.2 C 01/14/19 16:21 Pulse 77 01/14/19 16:25 Resp 18 01/14/19 16:21 BP 158/80 H 01/14/19 16:25 Pulse Ox 98 01/14/19 16:25 Orthostatic Blood Pressure [ 165/68 Sitting] Orthostatic Blood Pressure [ 158/80 Standing] Orthostatic Blood Pressure [ 157/91 Supine] Weight - Most Recent: 68.855 kg I&O - Last 24 hours: Intake & Output 01/14/19 01/14/19 01/14/19 06:59 14:59 22:59 Intake Total 0788 253 9807 Output Total 500 500 Balance 800 480 750 Lab Results - Last 24 hrs: Laboratory Results - last 24 hr 01/13/19 01/13/19 01/13/19 Range/Units 16:37 16:46 17:13 WBC (3.98-10.04) K/mm3 RBC (3.98-5.22) M/mm3 Hgb (11.2-15.7) gm/dl Hct (34.1-44.9) % MCV (79.4-94.8) fl MCH (25.6-32.2) pg MCHC (32.2-35.5) g/dl RDW Std Deviation (36.4-46.3) fL Plt Count (182-369) K/mm3 MPV (9.4-12.3) fl PT (9.7-12.0) SECONDS INR Sodium (136-145) mEq/L Potassium (3.5-5.1) mEq/L Chloride (98-107) mEq/L Carbon Dioxide (21-32) mEq/L Anion Gap (5-15) BUN (7-18) mg/dL Creatinine (0.55-1.02) mg/dL Est Cr Clr Drug Dosing mL/min Estimated GFR (MDRD) (>60) mL/min BUN/Creatinine Ratio (14-18) Glucose (83-115) mg/dL POC Glucose (83-110) mg/dL Hemoglobin A1c (4.50-6.20) % Calcium (8.5-10.1) mg/dL Phosphorus (2.6-4.7) mg/dL Magnesium (1.8-2.4) mg/dl Creatine Kinase 212 H (26-192) U/L Troponin I < 0.017 (0.00-0.056) ng/mL Vitamin B12 429 (193-986) pg/ml Folate (8.6-58.9) ng/mL Digoxin (0.9-2.0) ng/mL 01/13/19 01/14/19 01/14/19 Range/Units 21:45 05:40 05:40 WBC 10.42 H (3.98-10.04) K/mm3 RBC 3.67 L (3.98-5.22) M/mm3 Hgb 12.9 (11.2-15.7) gm/dl Hct 37.2 (34.1-44.9) % MCV 101.4 H (79.4-94.8) fl MCH 35.1 H (25.6-32.2) pg MCHC 34.7 (32.2-35.5) g/dl RDW Std Deviation 47.3 H (36.4-46.3) fL Plt Count 224 (182-369) K/mm3 MPV 11.1 (9.4-12.3) fl PT 18.7 H (9.7-12.0) SECONDS INR 1.77 Sodium (136-145) mEq/L Potassium (3.5-5.1) mEq/L Chloride (98-107) mEq/L Carbon Dioxide (21-32) mEq/L Anion Gap (5-15) BUN (7-18) mg/dL Creatinine (0.55-1.02) mg/dL Est Cr Clr Drug Dosing mL/min Estimated GFR (MDRD) (>60) mL/min BUN/Creatinine Ratio (14-18) Glucose (83-115) mg/dL POC Glucose 254 H (83-110) mg/dL Hemoglobin A1c (4.50-6.20) % Calcium (8.5-10.1) mg/dL Phosphorus (2.6-4.7) mg/dL Magnesium (1.8-2.4) mg/dl Creatine Kinase (26-192) U/L Troponin I (0.00-0.056) ng/mL Vitamin B12 (193-986) pg/ml Folate (8.6-58.9) ng/mL Digoxin (0.9-2.0) ng/mL 01/14/19 01/14/19 01/14/19 Range/Units 05:40 05:40 05:40 WBC (3.98-10.04) K/mm3 RBC (3.98-5.22) M/mm3 Hgb (11.2-15.7) gm/dl Hct (34.1-44.9) % MCV (79.4-94.8) fl MCH (25.6-32.2) pg MCHC (32.2-35.5) g/dl RDW Std Deviation (36.4-46.3) fL Plt Count (182-369) K/mm3 MPV (9.4-12.3) fl PT (9.7-12.0) SECONDS INR Sodium 139 (136-145) mEq/L Potassium 4.6 (3.5-5.1) mEq/L Chloride 105 (98-107) mEq/L Carbon Dioxide 24 (21-32) mEq/L Anion Gap 14.6 (5-15) BUN 46 H (7-18) mg/dL Creatinine 1.8 H (0.55-1.02) mg/dL Est Cr Clr Drug Dosing 19.06 mL/min Estimated GFR (MDRD) 27 (>60) mL/min BUN/Creatinine Ratio 25.6 H (14-18) Glucose 162 H (83-115) mg/dL POC Glucose (83-110) mg/dL Hemoglobin A1c 8.30 H (4.50-6.20) % Calcium 9.6 (8.5-10.1) mg/dL Phosphorus 3.7 (2.6-4.7) mg/dL Magnesium 1.5 L (1.8-2.4) mg/dl Creatine Kinase (26-192) U/L Troponin I (0.00-0.056) ng/mL Vitamin B12 (193-986) pg/ml Folate 12.9 (8.6-58.9) ng/mL Digoxin (0.9-2.0) ng/mL 01/14/19 01/14/19 01/14/19 Range/Units 05:40 06:51 11:00 WBC (3.98-10.04) K/mm3 RBC (3.98-5.22) M/mm3 Hgb (11.2-15.7) gm/dl Hct (34.1-44.9) % MCV (79.4-94.8) fl MCH (25.6-32.2) pg MCHC (32.2-35.5) g/dl RDW Std Deviation (36.4-46.3) fL Plt Count (182-369) K/mm3 MPV (9.4-12.3) fl PT (9.7-12.0) SECONDS INR Sodium (136-145) mEq/L Potassium (3.5-5.1) mEq/L Chloride (98-107) mEq/L Carbon Dioxide (21-32) mEq/L Anion Gap (5-15) BUN (7-18) mg/dL Creatinine (0.55-1.02) mg/dL Est Cr Clr Drug Dosing mL/min Estimated GFR (MDRD) (>60) mL/min BUN/Creatinine Ratio (14-18) Glucose (83-115) mg/dL POC Glucose 148 H 217 H (83-110) mg/dL Hemoglobin A1c (4.50-6.20) % Calcium (8.5-10.1) mg/dL Phosphorus (2.6-4.7) mg/dL Magnesium (1.8-2.4) mg/dl Creatine Kinase (26-192) U/L Troponin I (0.00-0.056) ng/mL Vitamin B12 (193-986) pg/ml Folate (8.6-58.9) ng/mL Digoxin 0.8 L (0.9-2.0) ng/mL 01/14/19 Range/Units 17:01 WBC (3.98-10.04) K/mm3 RBC (3.98-5.22) M/mm3 Hgb (11.2-15.7) gm/dl Hct (34.1-44.9) % MCV (79.4-94.8) fl MCH (25.6-32.2) pg MCHC (32.2-35.5) g/dl RDW Std Deviation (36.4-46.3) fL Plt Count (182-369) K/mm3 MPV (9.4-12.3) fl PT (9.7-12.0) SECONDS INR Sodium (136-145) mEq/L Potassium (3.5-5.1) mEq/L Chloride (98-107) mEq/L Carbon Dioxide (21-32) mEq/L Anion Gap (5-15) BUN (7-18) mg/dL Creatinine (0.55-1.02) mg/dL Est Cr Clr Drug Dosing mL/min Estimated GFR (MDRD) (>60) mL/min BUN/Creatinine Ratio (14-18) Glucose (83-115) mg/dL POC Glucose 143 H (83-110) mg/dL Hemoglobin A1c (4.50-6.20) % Calcium (8.5-10.1) mg/dL Phosphorus (2.6-4.7) mg/dL Magnesium (1.8-2.4) mg/dl Creatine Kinase (26-192) U/L Troponin I (0.00-0.056) ng/mL Vitamin B12 (193-986) pg/ml Folate (8.6-58.9) ng/mL Digoxin (0.9-2.0) ng/mL - Exam General: Reports: Alert, Oriented, Cooperative, No Acute Distress HEENT: Reports: Pupils Equal, Pupils Reactive, EOMI, Mucous Membr. Moist/[place] Neck: Reports: Supple, Trachea Midline, No JVD, No Thyromegaly Lungs: Reports: Clear to Auscultation, Normal Respiratory Effort Cardiovascular: Reports: Regular Rate, Regular Rhythm GI/Abdominal Exam: Normal Bowel Sounds, Soft, Non-Tender, No Organomegaly, No Distention, No Mass Back Exam: Reports: Normal Inspection Extremities: Normal Inspection, No Pedal Edema, Normal Capillary Refill Skin: Reports: Warm, Intact Neurological: Reports: No New Focal Deficit Psy/Mental Status: Reports: Alert, Normal Affect, Normal Mood *Q Meaningful Use (DIS) - VTE *Q VTE Anticoagulation Contraindications: Med/TX Not Indicated/Need
[2019-01-14] MEDS ORDERED: Warfarin 5 MG Tab PO SCH (18:00)
[2019-01-20] MEDS ORDERED: Warfarin 7.5 MG Tab PO SCH (18:00)
== END 2019-01-14 18:23 | disposition home or self-care (01) ==
LOC: JD.ED 10:23 → JD.MS 18:32
PROVIDERS: ADMIT Internal Medicine; ATTEND Internal Medicine
DX: I95.1 Orthostatic hypotension (principal); I48.91 Unspecified atrial fibrillation; I13.0 Hypertensive heart and chronic kidney disease with heart failure and stage 1 through stage 4 chronic kidney disease, or unspecified chronic kidney disease; I50.9 Heart failure, unspecified; N18.3 Chronic kidney disease, stage 3 (moderate); N17.9 Acute kidney failure, unspecified; D75.89 Other specified diseases of blood and blood-forming organs; J44.9 Chronic obstructive pulmonary disease, unspecified; M19.90 Unspecified osteoarthritis, unspecified site; W10.9XXA Fall (on) (from) unspecified stairs and steps, initial encounter; Z79.899 Other long term (current) drug therapy; Z79.01 Long term (current) use of anticoagulants; Z87.891 Personal history of nicotine dependence
CPT/HCPCS: 36415; 70450; 71045; 72125; 73030; 73140; 73564; 73721; 80048; 80053; 80162; 82550; 82607; 82746; 82962; 83036; 83735; 84100; 84484; 85025; 85027; 85610; 93005; 93306; 96374; 97116; 97161; 97165; 97530; 99285; A9270; J1170; J1815; J3475; J7120; 96361; 96365; 96366; 96372; 96375; 99284; G0378

== ENCOUNTER 2019-06-23 09:35 | Emergency (ER) | payer MEDICARE, OTHER ==
[2019-06-23 10:06] VITALS: BP 173/93; PULSE 75
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
--- NOTE | 2019-06-23 12:48 | CR ---
Chest: Two views of the chest were obtained. Comparison: Prior chest x-ray of 01/13/19. Heart is enlarged. Tortuous thoracic aorta is seen. Lungs are clear with no acute parenchymal change. Slight degenerative change is scattered within the spine. Surgical clips are seen from prior cholecystectomy. Impression: 1. Findings as noted above. 2. Nothing acute is appreciated. Diagnostic code #2 Study was dictated in MDT
--- NOTE | 2019-06-23 12:48 | CR ---
Right shoulder: Three views of the right shoulder were obtained. Comparison: No prior right shoulder exam. Joint space narrowing is seen within the acromioclavicular joint with minimal spurring. Glenohumeral joint shows slight spurring. No fracture or dislocation is seen. Impression: 1. Mild degenerative change. Diagnostic code #2 Study was dictated in MDT
== END 2019-06-23 11:54 | disposition home or self-care (01) ==
LOC: JD.ED 09:35
DX: M25.511 Pain in right shoulder (principal); I48.91 Unspecified atrial fibrillation; J44.9 Chronic obstructive pulmonary disease, unspecified; K21.9 Gastro-esophageal reflux disease without esophagitis; M19.90 Unspecified osteoarthritis, unspecified site; Z79.01 Long term (current) use of anticoagulants; Z79.899 Other long term (current) drug therapy
CPT/HCPCS: 36415; 71046; 71046-26; 73030-26-RT; 73030-RT; 80053; 84484; 85025; 85610; 93005; 99284-25

== ENCOUNTER 2020-08-26 17:58 | Emergency (ER) | payer MEDICARE, OTHER ==
[2020-08-26 18:06] VITALS: PULSE 70
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
[2020-08-26 18:36] VITALS: BP 120/80
== END 2020-08-26 18:45 | disposition home or self-care (01) ==
LOC: JD.ED 17:58
DX: T18.128A Food in esophagus causing other injury, initial encounter (principal); I48.91 Unspecified atrial fibrillation; J44.9 Chronic obstructive pulmonary disease, unspecified; Z79.01 Long term (current) use of anticoagulants
CPT/HCPCS: 99283

== ENCOUNTER 2023-01-17 13:38 | Emergency (ER) | payer MEDICARE, OTHER ==
[2023-01-17 18:07] VITALS: BP 161/90; PULSE 70
== END 2023-01-17 15:09 | disposition home or self-care (01) ==
LOC: JD.ED 13:38
DX: M47.812 Spondylosis without myelopathy or radiculopathy, cervical region (principal); E11.9 Type 2 diabetes mellitus without complications; K21.9 Gastro-esophageal reflux disease without esophagitis; J44.9 Chronic obstructive pulmonary disease, unspecified; Z79.01 Long term (current) use of anticoagulants; Z79.899 Other long term (current) drug therapy; Z90.49 Acquired absence of other specified parts of digestive tract
CPT/HCPCS: 99283